=== PATIENT | male | born 1980 | race Caucasian/White ===

== ENCOUNTER → 2023-06-24 | Outpatient (CLI) | payer OTHER | LOC: M PLAIMG 09:50 | DX: J32.9 Chronic sinusitis, unspecified (principal); M25.511 Pain in right shoulder; M25.512 Pain in left shoulder; M25.551 Pain in right hip; M54.12 Radiculopathy, cervical region; M25.561 Pain in right knee; M25.562 Pain in left knee; M50.30 Other cervical disc degeneration, unspecified cervical region; M25.571 Pain in right ankle and joints of right foot; M19.011 Primary osteoarthritis, right shoulder; M19.012 Primary osteoarthritis, left shoulder ==